=== PATIENT | female | born 1940 ===

== ENCOUNTER → 2024-06-24 | Outpatient (CLI) | payer MEDICARE, OTHER ==
[2024-06-24 09:53] LABS: BASOPHILS ABSOLUTE AUTO 0.06 K/mm3 (0.00-0.23); BASOPHILS PERCENT AUTO 1 % (0-2); EOSINOPHILS ABSOLUTE AUTO 0.07 K/mm3 (0.00-0.68); EOSINOPHILS PERCENT AUTO 1 % (0-6); Hematocrit 40.3 % (33.0-51.0); Hemoglobin 14.3 g/dL (11.5-16.0); IMMATURE GRAN ABSOLUTE AUTO 0.02 K/mm3 (0.00-0.10); IMMATURE GRAN PERCENT AUTO 0 % (0-1); LYMPHOCYTES PERCENT AUTO 31 % (21-46); MONOCYTES ABSOLUTE AUTO 0.42 K/mm3 (0.16-1.47); MONOCYTES PERCENT AUTO 7 % (4-13); Mean Corpuscular HGB 31.2 pg (26.0-34.0); Mean Corpuscular HGB Conc 35.5 g/dL (31.5-36.5); Mean Corpuscular Volume 88 fL (80-100); Mean Platelet Volume 11.9 fL (9.1-12.4); NEUTROPHILS ABSOLUTE AUTO 3.92 K/mm3 (1.96-9.15); NEUTROPHILS PERCENT AUTO 60 % (41-73); Platelet Count 220 K/mm3 (150-400); RDW Coefficient Variation 12.6 % (11.7-14.2); RDW Standard Deviation 40.2 fL (35.1-46.3); Red Blood Cell Count 4.59 M/mm3 (3.80-5.20); White Blood Cell Count 6.49 K/mm3 (4.00-11.30)
[2024-06-24 10:11] LABS: Alanine Aminotransfer (ALT/SGP 10 U/L (12-78); Albumin, Blood 3.9 g/dL (3.4-5.0); Alk Phos 63 U/L (40-126); Anion Gap 11 mmol/L (6-16); Aspartate Aminotrans (AST/SGOT 15 U/L (12-37); Bilirubin, Total 0.7 mg/dL (0.1-1.0); Blood Urea Nitrogen 14 mg/dL (8-24); Bun/Creatinine Ratio 18.4 (12.0-20.0); CHOL/HDL RATIO 2.3; CO2, Blood 30 mmol/L (21-32); Calcium, Blood 9.5 mg/dL (8.5-10.1); Chloride, Blood 96 mmol/L (98-108); Cholesterol 167 mg/dL (50-200); Creatinine, Blood 0.76 mg/dL (0.40-1.00); Globulin, Blood 3.8 g/dL (2.2-4.0); Glomerular Filtration Rate 77 (60-); Glucose, Blood 113 mg/dL (70-99); HDL Cholesterol 72 mg/dL (>39); LDL/HDL RATIO 1.2; Low Density Lipoprotein Chol 86 mg/dL (<110); Potassium, Blood 3.4 mmol/L (3.5-5.5); Sodium, Blood 134 mmol/L (136-145); Thyroid Stimulating Hormone 0.957 uIU/mL (0.360-4.800); Total Protein, Blood 7.7 g/dL (6.4-8.2); Triglycerides 43 mg/dL (30-160); Very Low Density Lipoprot Chol 8 mg/dL (6-32)
[2024-06-24 12:53] LABS: Percent Saturation 30.1 % (15.0-50.0)
== END | disposition home or self-care (01) ==
LOC: LAB SHORT 08:53 → LAB 08:53
PROVIDERS: Family Medicine
DX: E78.5 Hyperlipidemia, unspecified (principal); R53.83 Other fatigue
CPT/HCPCS: 36415; 80053; 80061; 82306; 82728; 83540; 83550; 84443; 85025

== ENCOUNTER 2024-09-08 12:21 | Day surgery (SDC) | payer MEDICARE, OTHER ==
[~2024-09-08] VITALS: Ht 157.5 cm; Wt 51.4 kg
[~2024-09-08 12:21] MED LIST: Glycopyrrolate 0.2 MG/ML 1MLVIAL ONE; Ondansetron HCl 2 MG / ML 2ML Vial ONE; ePHEDrine Sulfate 50 MG/ML 1ML Injection ONE
[2024-09-08] MEDS ORDERED: HYDCHL25 (12:40)
[2024-09-08] MEDS ORDERED: LOVASTATIN20 MG (12:40)
[2024-09-08] MEDS ORDERED: Lisinopril2.5 MG (12:40)
[2024-09-08] MEDS ORDERED: NEURONTIN40010 (12:40)
[2024-09-08 14:50] VITALS: BP 111/66
== END 2024-09-08 14:25 | disposition home or self-care (01) ==
LOC: ORSCSDS 12:21
PROVIDERS: Internal Medicine Gastroenterology
PROC: 0DJ08ZZ Inspection of Upper Intestinal Tract, Via Natural or Artificial Opening Endoscopic (ICD-10-PCS; principal; 2024-09-08 15:00)
DX: R13.10 Dysphagia, unspecified (principal); F17.210 Nicotine dependence, cigarettes, uncomplicated; Z79.899 Other long term (current) drug therapy
CPT/HCPCS: J0461; J2003; J2405; J2704; J7120